=== PATIENT | female | born 1995 | race Caucasian/White ===

== ENCOUNTER 2024-03-28 17:40 | Emergency (ER) | payer MEDICAID ==
[~2024-03-28] VITALS: Ht 157.5 cm; Wt 58.0 kg
[2024-03-28 18:00] VITALS: O2SAT 100
[2024-03-28] MEDS: ACETAMINOPHEN 325MG TABLET PO ONE (19:06)
[2024-03-28] MEDS: ONDANSETRON HCL 4MG TABLET PO ONE (19:06)
[2024-03-28 20:16] VITALS: BP 130/81; PULSE 79; RESP 18; TEMP 36.61404; O2SAT 100
== END 2024-03-28 21:07 | disposition home or self-care (01) ==
LOC: ER 17:40
DX: B34.9 Viral infection, unspecified (principal); Z98.890 Other specified postprocedural states; Z20.822 Contact with and (suspected) exposure to COVID-19
CPT/HCPCS: 99283; 87426; 87804 ×2; Q0162